=== PATIENT | female | born 1995 | race Two or more races ===

== ENCOUNTER 2020-02-27 19:52 | Emergency (ER) | payer MEDICAID ==
[~2020-02-27] VITALS: Ht 160 cm; Wt 53.0 kg
[2020-02-27] MEDS ORDERED: SODIUM CHLORIDE 0.9% 1,000 ML IV ONE (21:55)
[2020-02-27] MEDS ORDERED: ONDANSETRON HCL 4MG/2ML INJ IV STA (21:55)
[2020-02-27 22:08] LABS: CLARITY URINE CLOUDY (CLEAR); COLOR URINE DARK YELLOW (YELLOW); KETONES URINE 4+ (NEGATIVE); LEUKOCYTE ESTERASE URINE NEGATIVE (NEGATIVE); NITRITE URINE NEGATIVE (NEGATIVE); OCCULT BLOOD URINE NEGATIVE (NEGATIVE); PROTEIN URINE TRACE (NEGATIVE); SPECIFIC GRAVITY URINE 1.035 (1.005-1.030)
[2020-02-27 23:33] LABS: BASOPHILS % 0.6 % (0.0-2.0); EOSINOPHILS % 0.6 % (0.0-5.0); HEMATOCRIT. 41.3 % (36.0-48.0); LYMPHOCYTES % 15.4 % (20.0-50.0); MEAN CORPUSCULAR HEMOGLOBIN 28.2 pg (28.0-32.0); MEAN CORPUSCULAR VOLUME 83.4 fL (81.0-99.0); MEAN PLATELET VOLUME 8.3 fl (7.4-10.4); MONOCYTES % 5.2 % (2.0-8.0); NEUTROPHILS % 78.2 % (40.0-76.0); PLATELET 206 x1000/uL (130-400); RED BLOOD CELL COUNT 4.95 mill/uL (4.2-5.4); RED CELL DISTRIBUTION WIDTH 16.9 % (11.6-14.6)
[2020-02-27 23:42] LABS: CHLORIDE 104 mEq/L (98-107)
[2020-02-27 23:43] LABS: PROTHROMBIN TIME 10.9 sec (9.6-11.0)
[2020-02-28 00:09] LABS: B-HCG QUANTITATIVE 89079 mIU/mL (<3)
[2020-02-28] MEDS ORDERED: IOHEXOL-300 100 ML BOTTLE ONE (03:03)
[2020-02-28] MEDS ORDERED: CEFTRIAXONE 1 G PREMIX 50 ML IV ONE (05:00)
[2020-02-28 05:27] VITALS: BP 101/49
== END 2020-02-28 05:27 | disposition home or self-care (01) ==
LOC: ER 19:52
DX: O26.891 Other specified pregnancy related conditions, first trimester (principal); K52.9 Noninfective gastroenteritis and colitis, unspecified; Z3A.11 11 weeks gestation of pregnancy; Z88.0 Allergy status to penicillin
CPT/HCPCS: 36415; 74178; 76801; 76817; 76857; 80053; 81003; 81025; 83690; 84702; 85025; 85610; 96361; 96365; 96375; 99285; J0696; J2405; J7030; Q9967

== ENCOUNTER 2020-09-01 11:39 | Observation (INO) | payer MEDICAID ==
[~2020-09-01] VITALS: Ht 152.4 cm; Wt 74.8 kg
[2020-09-01] MEDS ORDERED: PNV1TABL50 MT (13:57)
== END 2020-09-01 14:20 | disposition home or self-care (01) ==
LOC: 8 EST LDRP 11:39
PROVIDERS: ADMIT Obstetrics & Gynecology; ATTEND Obstetrics & Gynecology
DX: O36.8930 Maternal care for other specified fetal problems, third trimester, not applicable or unspecified (principal); Z3A.38 38 weeks gestation of pregnancy
CPT/HCPCS: 59025; 76815; 76818; G0378; 99281

== ENCOUNTER 2020-09-12 03:14 | Observation (INO) | payer MEDICAID ==
[~2020-09-12] VITALS: Ht 152.4 cm; Wt 72.6 kg
[~2020-09-12 03:14] MED LIST: PNV1TABL50 MT
[2020-09-12] MEDS ORDERED: FERR325T6 PO (05:13)
[2020-09-12] MEDS ORDERED: PREN-182 PO (05:13)
[2020-09-12] MEDS ORDERED: CALC-861 PO (05:13)
[2020-09-13] MEDS ORDERED: NORE0.3520 MT (06:53)
[2020-09-13] MEDS ORDERED: IBUP-2030 PO (06:53)
== END 2020-09-12 07:12 | disposition home or self-care (01) ==
LOC: 8 EST LDRP 03:14
PROVIDERS: ADMIT Obstetrics & Gynecology; ATTEND Obstetrics & Gynecology
DX: O62.9 Abnormality of forces of labor, unspecified (principal); Z3A.39 39 weeks gestation of pregnancy
CPT/HCPCS: 59025; 76815; 76818; G0378; 99281